=== PATIENT | male | born 1955 | race Caucasian/White ===

== ENCOUNTER 2017-07-04 04:27 | Emergency (ER) | payer BC ==
[2017-07-04 04:36] VITALS: BP 162/91
--- NOTE | 2017-07-04 04:51 | EDM.PDOC ---
ED HPI GENERAL MEDICAL PROBLEM - General Chief Complaint: Genitourinary Problem Stated Complaint: UNABLE TO VOID Time Seen by Provider: 07/04/17 04:40 Source of Information: Reports: Patient History Limitations: Reports: No Limitations - History of Present Illness INITIAL COMMENTS - FREE TEXT/NARRATIVE: Pt states over the past year he has been having difficulty urinating was started on flomax. Yesterday he forgot to take the medication and has been unable to urinate since 10pm. Denies any fever, nausea or vomiting. Abdominal pain is suprapubic region. Onset Date: 07/02/17 Duration: Getting Worse Location: Reports: Abdomen Quality: Reports: Pressure, Other (fullness) Severity: Moderate Improves with: Reports: Movement Worsens with: Reports: Other (sitting ) Associated Symptoms: Denies: Confusion, Chest Pain, Diaphoresis, Fever/Chills, Malaise, Nausea/Vomiting, Rash, Shortness of Breath, Syncope, Weakness - Related Data Allergies Allergy/AdvReac Type Severity Reaction Status Date / Time No Known Allergies Allergy Verified 06/27/16 09:06 Home Meds: Home Meds Aspirin 81 mg PO DAILY 07/04/17 [History] Tamsulosin HCl [Flomax] 0.4 mg PO DAILY 07/04/17 [History] Past Medical History - Past Health History Medical/Surgical History: Denies Medical/Surgical History Social & Family History - Tobacco Use Smoking Status *Q: Unknown Ever Smoked ED ROS GENERAL - Review of Systems Review Of Systems: See Below Constitutional: Reports: No Symptoms. Denies: Fever, Chills, Malaise, Night Sweats, Diaphoresis, Decreased Appetite, Weight Gain Respiratory: Reports: No Symptoms Cardiovascular: Reports: No Symptoms Endocrine: Reports: No Symptoms GI/Abdominal: Reports: Abdominal Pain (suprapubic region ). Denies: Black Stool , Bloody Stool, Constipation, Diarrhea, Decreased Appetite, Difficulty Swallowing, Distension, Flatus, Hematemesis, Hematochezia, Melena, Mucous in Stool, Nausea, Stool Incontinence, Vomiting : Reports: Dysuria, Urinary Retention. Denies: Discharge, Flank Pain, Frequency, Hematuria, Incontinence, Irregular Menses, Pain, Urgency Musculoskeletal: Reports: No Symptoms Skin: Reports: No Symptoms Neurological: Reports: No Symptoms ED EXAM, RENAL/ - Physical Exam Exam: See Below Exam Limited By: No Limitations General Appearance: Alert, WD/WN, No Apparent Distress Respiratory/Chest: No Respiratory Distress, No Accessory Muscle Use, Chest Non- Tender Cardiovascular: Normal Peripheral Pulses, Regular Rate, Rhythm GI/Abdominal: Normal Bowel Sounds, Soft, Non-Tender, No Organomegaly, No Distention, No Abnormal Bruit, No Mass, Pelvis Stable (Male) Exam: No Hernia, Normal Inspection. No: Testicular Mass, Testicular Tenderness (L) Back Exam: Normal Inspection, Full Range of Motion Extremities: Normal Inspection, Normal Range of Motion, Non-Tender, No Pedal Edema Neurological: Alert, Oriented, Normal Cognition, Normal Gait Psychiatric: Normal Affect, Normal Mood Skin Exam: Dry, Intact, Normal Color, No Rash Course - Vital Signs Last Recorded V/S: Last Vital Signs Temp 35.2 C 07/04/17 04:33 Pulse 86 07/04/17 04:33 Resp 20 07/04/17 04:33 BP 162/91 H 07/04/17 04:33 Pulse Ox 95 07/04/17 04:33 - Orders/Labs/Meds Orders: Active Orders 24 hr Category Date Time Status Insert Urinary Catheter [OM.PC] Q24H Care 07/04/17 04:45 Ordered Urinary Catheter Assessment [RC] ASDIRECTED Care 07/04/17 04:45 Ordered - Re-Assessments/Exams Free Text/Narrative Re-Assessment/Exam: 07/04/17 04:53 Pt had his flomax tablets with him. Pt was advised to take the medication as soon as he leaves to help with his urinary retention Departure - Departure Time of Disposition: 05:05 Disposition: Home, Self-Care 01 Condition: Good Clinical Impression: Retention of urine - Discharge Information Instructions: Clean Intermittent Catheterization, Male Additional Instructions: Ensure you are taking your flomax daily. Return to the ER if urinary retention returns Follow up with PCP if retention continues to progress Ensure you are drinking enough water and reducing caffeine or carbonated beverages Come back to the ER if you are unable to void within 6 hours or if having severe abdominal discomfort Keep your appointment with your urologist on Aug 02. - My Orders Last 24 Hours: My Active Orders 07/04/17 04:45 Insert Urinary Catheter [OM.PC] Q24H Urinary Catheter Assessment [RC] ASDIRECTED - Assessment/Plan Last 24 Hours: My Active Orders 07/04/17 04:45 Insert Urinary Catheter [OM.PC] Q24H Urinary Catheter Assessment [RC] ASDIRECTED
== END 2017-07-04 05:05 | disposition home or self-care (01) ==
LOC: VM.ED 04:27
DX: R33.9 Retention of urine, unspecified (principal); Z79.82 Long term (current) use of aspirin; Z87.891 Personal history of nicotine dependence
CPT/HCPCS: 51701; 51798; 99284

== ENCOUNTER 2017-07-15 07:44 | Day surgery (SDC) | payer BC ==
[~2017-07-15 07:44] MED LIST: Lactated Ringers 1,000 ML IV SCH
[2017-07-15] MEDS ORDERED: Propofol 200 MG/20 ML SDV ONE (09:38)
[2017-07-15] MEDS ORDERED: fentaNYL 100 MCG/2 ML SDV ONE (09:38)
[2017-07-15 11:06] VITALS: BP 151/84
--- NOTE | 2017-07-15 14:27 | OR ---
DATE OF SURGERY: 07/15/2017 REFERRING PROVIDER: Ana Maria Frias PA-C PRE-OPERATIVE DIAGNOSES: 1. Constipation, acute since October. 2. Change in bowel habits. 3. This is the patient's first colonoscopy. No known family history of colon cancer or colon polyps. POST-OPERATIVE DIAGNOSIS: Mild left-sided diverticulosis, otherwise, normal colon. PROCEDURE: Colonoscopy. SURGEON: Jf Pradhan M.D. ANESTHESIA: Monitored anesthesia care. BOWEL PREP: Good. Davion is a 61-year-old male who was brought to the endoscopy suite after discussing risks and benefits of the procedure. Informed consent was obtained for conscious sedation and colonoscopy with or without biopsy and/or polypectomy. We also discussed possibility of missed lesions. Pre-procedure exam was unremarkable. IV, oxygen, and monitors were placed. The patient was placed in the left lateral decubitus position. Sedation was administered and a digital rectal exam was performed which was unremarkable. Colonoscope was passed into the rectum and slowly advanced all the way to the cecum. Cecum was viewed and photographed. The colonoscope was slowly withdrawn and the mucosa was closed observed in a direct circumferential manner. The ascending colon was unremarkable. The transverse colon was unremarkable. The descending and sigmoid colon segments did reveal some mild diverticulosis, most prominent in the sigmoid area. Retroflexion was performed and rectal mucosa was unremarkable. Scope was removed. The patient tolerated the procedure well. The patient was monitored until that baseline status. Discharge instructions were reviewed and the patient was discharged in good condition. COMPLICATIONS: None. TOTAL TIME: 15 minutes. ESTIMATED BLOOD LOSS: None. RECOMMENDATIONS/FOLLOW-UP: Normal colonoscopy. Recommend repeat colonoscopy in 10 years for colon cancer screening. I would like to kindly thank Ana Maria Frias for this referral. DMB: 07/15/2017 10:15:51 MODL: 07/15/2017 14:12:51 /[id number]
== END 2017-07-15 11:25 | disposition home or self-care (01) ==
LOC: VM.SDS 07:44
PROVIDERS: ATTEND Family Medicine
DX: K57.30 Diverticulosis of large intestine without perforation or abscess without bleeding (principal); I10 Essential (primary) hypertension; Z79.899 Other long term (current) drug therapy
CPT/HCPCS: 45378; J2704; J3010; J7120

== ENCOUNTER 2018-03-19 08:52 | Emergency (ER) | payer OTHER, BC ==
[2018-03-19 09:10] VITALS: BP 138/76
--- NOTE | 2018-03-19 09:24 | EDM.PDOC ---
ED HPI GENERAL MEDICAL PROBLEM - General Stated Complaint: CUT LEFT MIDDLE FINGER Time Seen by Provider: 03/19/18 08:58 Source of Information: Reports: Patient History Limitations: Reports: No Limitations - History of Present Illness INITIAL COMMENTS - FREE TEXT/NARRATIVE: Patient comes in to the emergency department today with a complaint of laceration to his left hand middle finger. Patient was at work this morning and was using a utility knife when he slipped and ended up cutting his finger. Patient tried to control bleeding with pressure and presented to the emergency department for further medical management regarding this. Patient denies any numbness tingling or limited range of motion. He describes the pain as sharp. He states it feels better when not moving it hurts when he moves it. Onset: Sudden - Related Data Allergies Allergy/AdvReac Type Severity Reaction Status Date / Time No Known Allergies Allergy Verified 03/19/18 09:11 Home Meds: Home Meds Aspirin 81 mg PO DAILY 07/04/17 [History] Past Medical History - Past Health History Medical/Surgical History: Denies Medical/Surgical History Cardiovascular History: Reports: Hypertension Respiratory History: Reports: None Gastrointestinal History: Reports: Chronic Constipation, Other (See Below) Other Gastrointestinal History: change in bowels Genitourinary History: Reports: Other (See Below) Other Genitourinary History: urinary frequency. nocturia Neurological History: Reports: None Psychiatric History: Reports: None Endocrine/Metabolic History: Reports: None Hematologic History: Reports: None Immunologic History: Reports: None Oncologic (Cancer) History: Reports: None Dermatologic History: Reports: None - Past Surgical History Head Surgeries/Procedures: Reports: None HEENT Surgical History: Reports: None Cardiovascular Surgical History: Reports: None GI Surgical History: Reports: Hernia, Abdominal Musculoskeletal Surgical History: Reports: Other (See Below) Other Musculoskeletal Surgeries/Procedures:: knee sx Social & Family History - Tobacco Use Smoking Status *Q: Unknown Ever Smoked ED ROS GENERAL - Review of Systems Review Of Systems: See Below Constitutional: Reports: No Symptoms HEENT: Reports: No Symptoms Respiratory: Reports: No Symptoms Cardiovascular: Reports: No Symptoms Endocrine: Reports: No Symptoms GI/Abdominal: Reports: No Symptoms : Reports: No Symptoms Musculoskeletal: Reports: No Symptoms Skin: Reports: No Symptoms Neurological: Reports: No Symptoms Psychiatric: Reports: No Symptoms Hematologic/Lymphatic: Reports: No Symptoms Immunologic: Reports: No Symptoms ED EXAM, GENERAL - Physical Exam Exam: See Below Exam Limited By: No Limitations General Appearance: Alert, WD/WN, No Apparent Distress Head: Atraumatic, Normocephalic Neck: Normal Inspection, Supple, Non-Tender, Lymphadenopathy (L) Respiratory/Chest: No Respiratory Distress, No Accessory Muscle Use Cardiovascular: Normal Peripheral Pulses, Regular Rate, Rhythm Extremities: Normal Inspection, Normal Range of Motion, Non-Tender Neurological: Alert, Oriented, Normal Cognition, Normal Gait Psychiatric: Normal Affect, Normal Mood Skin Exam: Warm, Intact, Other (laceration Left hand middle finger. distal region 5cm- linear edges, no tendon disruption noted. CMS and ROM intact. ) ED GENERAL MEDICAL PROCEDURES - Laceration/Wound Repair Left Distal Finger Lac/wound length in cm: 5 Appearance: Subcutaneous, Linear, Clean Anesthetic Type: Local Local Anesthesia - Lidocaine (Xylocaine): 1% Plain Local Anesthetic Volume: 4cc Skin Prep: Chlorhexidine (Hibiciens), Saline, Sterile Drape Exploration/Debridement/Repair: Wound Explored, Explored to Base Closed with: Sutures Suture Size: 4-0 # of Sutures: 7 Suture Type: Nylon, Simple Sterile Dressing Applied: Nurse Tetanus Status Addressed: Yes Complications: No Course - Vital Signs Last Recorded V/S: Last Vital Signs Temp 36.9 C 03/19/18 08:55 Pulse 70 03/19/18 08:55 Resp 18 03/19/18 08:55 BP 138/76 03/19/18 08:55 Pulse Ox 94 L 03/19/18 08:55 - Orders/Labs/Meds Meds: Medications Discontinued Medications Generic Name Dose Route Start Last Admin Trade Name Rosa PRN Reason Stop Dose Admin Lidocaine HCl 5 ml 03/19/18 09:00 03/19/18 09:07 Xylocaine-Mpf 1% INJECT 03/19/18 09:01 5 ml ONETIME ONE Administration Departure - Departure Time of Disposition: 09:20 Disposition: Home, Self-Care 01 Condition: Good Clinical Impression: Laceration - Discharge Information Instructions: Laceration Care, Adult Forms: ED Return to Work/School Form Additional Instructions: 1. Keep the area clean and dry 2. Keep the wound cover when working 3. Use bacitracin daily on the laceration to help healing 4. Follow-up in clinic in 10 days to remove sutures 5. Follow-up with your PCP was signs of infection 6. Activity and diet as tolerated 7. Limit the use of the injured finger the next 2-3 days
== END 2018-03-19 09:38 | disposition home or self-care (01) ==
LOC: VM.ED 08:52
DX: S61.213A Laceration without foreign body of left middle finger without damage to nail, initial encounter (principal); I10 Essential (primary) hypertension; Y99.0 Civilian activity done for income or pay; Z79.82 Long term (current) use of aspirin; W26.0XXA Contact with knife, initial encounter
CPT/HCPCS: 12002; 99283